=== PATIENT | male | born 1990 | race Caucasian/White ===

== ENCOUNTER 2018-12-04 08:49 | Observation (INO) ==
[2018-12-04] MEDS ORDERED: KETOROLAC 30 MG/1 ML VIAL IV STA (09:20)
[2018-12-04] MEDS ORDERED: methylPREDNISolone SOD SUC 125 MG/2 ML VIAL IV STA (09:20)
[2018-12-04 09:41] LABS: Basophils # 0.1 10*3/uL (0.0-0.2); Basophils % 0.5 % (0.0-0.8); Eosinophils # 0.2 10*3/uL (0.0-0.87); Eosinophils % 0.8 % (0.00-10.9); Hematocrit 49.6 VOL% (42.0-52.0); Immature Granulocytes % 0.8 %; Immature Granulocytes Absolute 0.15 #; Lymphocytes # 3.5 10*3/uL (1.4-4.0); Lymphocytes % 18.6 % (21.2-54.2); Mean Corpuscular HGB Conc 32.3 GM/DL (32-36); Mean Corpuscular Volume 91.9 FL (87-102); Mean Platelet Volume 10.5 FL (9.6-12.0); Monocytes % 8.6 % (1.7-12.7); Neutrophils % 70.7 % (38.7-73.9); Platelet Count 271 T/CUMM (130-400); Red Cell Distribution Width 13.7 % (9.3-17.3)
[2018-12-04 10:01] LABS: Calcium 9.3 MG/DL (8.5-10.1); Uric Acid 7.6 MG/DL (3.5-7.2)
[2018-12-04] MEDS ORDERED: CEFTAROLINE 600 MG in SODIUM CHLORIDE 0.9% 100 ML IV STA (10:25)
[2018-12-04] MEDS ORDERED: ONDANSETRON 4 MG/2 ML VIAL IV PRN (12:16)
[2018-12-04] MEDS ORDERED: KETOROLAC 30 MG/1 ML VIAL IV PRN (14:46)
[2018-12-04 15:20] LABS: Apearance,Urine CLEAR (Clear); Bilirubin,Urine Negative (Negative); Blood, Urine Negative (Negative); Glucose,Urine (UA) Negative (Negative); Ketones,Urine Negative (Negative); Mucus,Urine Many /LPF (Occasional); Nitrite,Urine Negative (Negative); Protein,Urine Negative; Squamous Epithelial Cell,Urine Occasional /HPF (0-10); Urine Color Yellow (Yellow); Urine Urobilinogen < 2.0 EU/DL (0.2-1.0); WBC,Urine 2 /HPF (0-6)
[2018-12-04] MEDS: NICOTINE 21 MG/24 HR PATCH TRANSDERM SCH (16:17)
[2018-12-04] MEDS ORDERED: CEFTAROLINE 600 MG in SODIUM CHLORIDE 0.9% 100 ML IV SCH (23:00)
[2018-12-05 02:26] LABS: Basophils # 0.1 10*3/uL (0.0-0.2); Basophils % 0.2 % (0.0-0.8); Hematocrit 46.8 VOL% (42.0-52.0); Hemoglobin 15.1 GM/DL (14.0-18.0); Immature Granulocytes % 0.9 %; Immature Granulocytes Absolute 0.19 #; Lymphocytes # 2.1 10*3/uL (1.4-4.0); Lymphocytes % 9.5 % (21.2-54.2); Mean Corpuscular HGB Conc 32.3 GM/DL (32-36); Mean Corpuscular Volume 91.9 FL (87-102); Mean Platelet Volume 10.9 FL (9.6-12.0); Neutrophils % 82.4 % (38.7-73.9); Platelet Count 260 T/CUMM (130-400); Red Blood Count 5.09 MC/CUMM (3.8-5.5); Red Cell Distribution Width 13.4 % (9.3-17.3); White Blood Count 21.6 T/CUMM (4-12)
[2018-12-05 02:51] LABS: Calcium 9.4 MG/DL (8.5-10.1); Osmolality,Calculated 274.7 MOS/KG (273-304)
[2018-12-05 03:47] LABS: Lymphocytes 8 % (20-55); Segmented Neutrophils 86 % (50-85)
[2018-12-05 03:48] LABS: Platelet Estimate Adequate; Total Cells Counted 100
[2018-12-05] MEDS: NICOTINE 21 MG/24 HR PATCH TRANSDERM SCH (08:49)
[2018-12-05] MEDS: ENOXAPARIN 40 MG/0.4 ML SYRINGE SUBCUT SCH (08:49)
[2018-12-05] MEDS: PANTOPRAZOLE 40 MG TABLET PO SCH (08:50)
[2018-12-05] MEDS ORDERED: COLCHICINE 0.6 MG CAPSULE PO ONE (11:23)
[2018-12-05] MEDS: VANCOMYCIN INJ 1,750 MG in SODIUM CHLORIDE 0.9% 500 ML IV SCH ×2 (11:57→20:20)
[2018-12-05] MEDS: COLCHICINE 0.6 MG CAPSULE PO SCH (20:20)
[2018-12-06] MEDS: VANCOMYCIN INJ 1,750 MG in SODIUM CHLORIDE 0.9% 500 ML IV SCH (04:10)
[2018-12-06 04:57] LABS: Basophils # 0.1 10*3/uL (0.0-0.2); Basophils % 0.6 % (0.0-0.8); Eosinophils # 0.2 10*3/uL (0.0-0.87); Eosinophils % 1.2 % (0.00-10.9); Hematocrit 43.3 VOL% (42.0-52.0); Immature Granulocytes % 0.6 %; Immature Granulocytes Absolute 0.09 #; Lymphocytes # 4.6 10*3/uL (1.4-4.0); Lymphocytes % 32.6 % (21.2-54.2); Mean Corpuscular HGB Conc 32.3 GM/DL (32-36); Mean Corpuscular Volume 92.7 FL (87-102); Mean Platelet Volume 11.4 FL (9.6-12.0); Monocytes % 7.4 % (1.7-12.7); Neutrophils % 57.6 % (38.7-73.9); Platelet Count 246 T/CUMM (130-400); Red Blood Count 4.67 MC/CUMM (3.8-5.5); Red Cell Distribution Width 14.1 % (9.3-17.3); White Blood Count 14.1 T/CUMM (4-12)
[2018-12-06 05:19] LABS: Calcium 8.7 MG/DL (8.5-10.1)
[2018-12-06] MEDS: ENOXAPARIN 40 MG/0.4 ML SYRINGE SUBCUT SCH (08:28)
[2018-12-06] MEDS: PANTOPRAZOLE 40 MG TABLET PO SCH (08:28)
[2018-12-06] MEDS: NICOTINE 21 MG/24 HR PATCH TRANSDERM SCH (08:28)
[2018-12-06] MEDS: COLCHICINE 0.6 MG CAPSULE PO SCH (08:28)
[2018-12-06 12:48] VITALS: BP 142/87
== END 2018-12-06 11:11 | disposition home or self-care (01) ==
LOC: N.EDINP 08:49 → N.ED 08:49 → SUATTDRO 12:16 → N.EDINP 14:12 → N.2E 14:26
PROVIDERS: ADMIT Internal Medicine; ATTEND Internal Medicine

== ENCOUNTER 2019-11-24 20:32 | Inpatient (IN) ==
[2019-11-24] MEDS ORDERED: CLINDAMYCIN INJ 900 MG in PREMIX 1 EACH IV STA (21:00)
[2019-11-24 22:15] LABS: Basophils # 0.1 10*3/uL (0.0-0.2); Basophils % 0.4 % (0.0-0.8); Eosinophils # 0.1 10*3/uL (0.0-0.87); Eosinophils % 0.3 % (0.00-10.9); Hematocrit 53.2 VOL% (42.0-52.0); Hemoglobin 17.5 GM/DL (14.0-18.0); Immature Granulocytes % 0.7 %; Immature Granulocytes Absolute 0.16 #; Lymphocytes # 2.8 10*3/uL (1.4-4.0); Lymphocytes % 12.6 % (21.2-54.2); Mean Corpuscular HGB Conc 32.9 GM/DL (32-36); Mean Corpuscular Volume 93.3 FL (87-102); Mean Platelet Volume 10.6 FL (9.6-12.0); Monocytes % 6.9 % (1.7-12.7); Neutrophils % 79.1 % (38.7-73.9); Platelet Count 304 T/CUMM (130-400); Red Cell Distribution Width 14.1 % (9.3-17.3); White Blood Count 22.2 T/CUMM (4-12)
[2019-11-24 22:22] LABS: Apearance,Urine CLEAR (Clear); Bilirubin,Urine Negative (Negative); Blood, Urine Negative (Negative); Glucose,Urine (UA) Negative (Negative); Hyaline Casts,Urine 15 /LPF (0-3); Ketones,Urine Negative (Negative); Mucus,Urine Many /LPF (Occasional); Nitrite,Urine Negative (Negative); Protein,Urine 100 MG/DL; RBC,Urine 1 /HPF (0-4); Squamous Epithelial Cell,Urine Occasional /HPF (0-10); Urine Color Amber (Yellow); Urine Specific Gravity 1.027 (1.001-1.035); Urine Urobilinogen < 2.0 EU/DL (0.2-1.0); WBC,Urine 4 /HPF (0-6)
[2019-11-24 22:36] LABS: Albumin 3.9 G/DL (3.4-5.0); Bilirubin,Total 0.6 MG/DL (0.2-1.0); Calcium 9.4 MG/DL (8.5-10.1); Ferritin 292.9 ng/ml (26-388); Osmolality,Calculated 267.1 MOS/KG (273-304); Total Protein 9.6 G/DL (6.4-8.3)
[2019-11-24 22:44] LABS: Lymphocytes 17 % (20-55); Platelet Estimate Normal; Segmented Neutrophils 79 % (50-85); Total Cells Counted 100
[2019-11-24 22:48] LABS: Barbiturates Screen,Urine Negative (Negative); Benzodiazepines Screen,Urine Negative (Negative); Cannabinoid Screen,Urine Positive (Negative); Opiate Screen,Urine Positive (Negative); Phencyclidine Screen,Urine Negative (Negative)
[2019-11-24 23:49] LABS: INR 1.2; PT Patient Result 12.4 SECS (9.8-11.9)
[2019-11-25] MEDS ORDERED: ONDANSETRON 4 MG/2 ML VIAL IV PRN (02:28)
[2019-11-25] MEDS: SODIUM CHLORIDE 0.45% 1,000 ML IV SCH ×3 (03:54→22:15)
[2019-11-25] MEDS: CLINDAMYCIN INJ 900 MG in PREMIX 1 EACH IV SCH ×3 (03:56→17:07)
[2019-11-25] MEDS: fentaNYL 100 MCG/2 ML VIAL IV PRN ×4 (03:58→23:10)
[2019-11-25 07:24] LABS: Basophils # 0.1 10*3/uL (0.0-0.2); Basophils % 0.4 % (0.0-0.8); Eosinophils # 0.1 10*3/uL (0.0-0.87); Eosinophils % 0.3 % (0.00-10.9); Hematocrit 50.9 VOL% (42.0-52.0); Immature Granulocytes % 0.7 %; Immature Granulocytes Absolute 0.17 #; Lymphocytes # 3.4 10*3/uL (1.4-4.0); Mean Corpuscular HGB Conc 33.4 GM/DL (32-36); Mean Corpuscular Volume 92.4 FL (87-102); Mean Platelet Volume 12.2 FL (9.6-12.0); Monocytes % 7.1 % (1.7-12.7); Neutrophils % 77.5 % (38.7-73.9); Platelet Count 180 T/CUMM (130-400); Red Blood Count 5.51 MC/CUMM (3.8-5.5); Red Cell Distribution Width 14.1 % (9.3-17.3); White Blood Count 24.5 T/CUMM (4-12)
[2019-11-25 07:51] LABS: Lymphocytes 19 % (20-55); Platelet Estimate Adequate; Segmented Neutrophils 75 % (50-85); Total Cells Counted 100
[2019-11-25] MEDS ORDERED: MIDAZOLAM 2 MG/2 ML VIAL ONE (09:12)
[2019-11-25] MEDS ORDERED: SEVOFLURANE 1 UNIT/15 MINUTE INH ONE (09:12)
[2019-11-25] MEDS ORDERED: LIDOCAINE 2% 5 ML VIAL ONE (09:12)
[2019-11-25] MEDS ORDERED: propofoL 200 MG/20 ML VIAL IV ONE (09:12)
[2019-11-25] MEDS ORDERED: fentaNYL 100 MCG/2 ML VIAL ONE (09:13)
[2019-11-25] MEDS: AMPICILLIN/SULBACTAM 3,000 MG in SODIUM CHLORIDE 0.9% 100 ML IV SCH (21:00)
[2019-11-26] MEDS: SODIUM CHLORIDE 0.45% 1,000 ML IV SCH ×3 (02:13→22:31)
[2019-11-26] MEDS: AMPICILLIN/SULBACTAM 3,000 MG in SODIUM CHLORIDE 0.9% 100 ML IV SCH ×4 (02:14→20:00)
[2019-11-26] MEDS: fentaNYL 100 MCG/2 ML VIAL IV PRN ×4 (03:35→22:32)
[2019-11-27] MEDS: AMPICILLIN/SULBACTAM 3,000 MG in SODIUM CHLORIDE 0.9% 100 ML IV SCH ×4 (03:10→20:45)
[2019-11-27] MEDS: SODIUM CHLORIDE 0.45% 1,000 ML IV SCH ×2 (13:03→21:24)
[2019-11-28] MEDS: AMPICILLIN/SULBACTAM 3,000 MG in SODIUM CHLORIDE 0.9% 100 ML IV SCH ×2 (03:10→08:23)
[2019-11-28] MEDS: SODIUM CHLORIDE 0.45% 1,000 ML IV SCH ×2 (06:08→13:10)
[2019-11-28 13:07] VITALS: BP 143/76
== END 2019-11-28 12:53 | disposition home or self-care (01) | DRG 345 ==
LOC: N.ED 20:32 → N.EDINP 11-25 00:18 → N.3E 11-25 02:20 → N.2E 11-25 09:22
PROVIDERS: ADMIT Surgery; ATTEND Surgery